=== PATIENT | male | born 1930 | race Caucasian/White ===

== ENCOUNTER 2018-07-18 17:49 | Inpatient (IN) | payer MEDICARE, OTHER ==
[~2018-07-18] VITALS: Ht 172.7 cm; Wt 84.5 kg
[~2018-07-18 17:49] MED LIST: CARV3.1289 PO; FURO-150 PO; GLIM4TAB79 PO; LEVO175T7 PO; LISI40TA4 PO; TERA2CAP4 PO
[2018-07-18 18:54] LABS: BASOPHILS % (AUTO) 0.4 % (0-1); EOSINOPHILS # (AUTO) 0.3 X10'3 (0-0.9); EOSINOPHILS % (AUTO) 3.5 % (0-6); HEMATOCRIT 30.6 % (42.0-52.0); HEMOGLOBIN 9.7 g/dl (14.0-17.9); LYMPHOCYTES # (AUTO) 0.4 X10'3 (1.1-4.8); LYMPHOCYTES % (AUTO) 5.7 % (21-51); MEAN CORPUSCULAR HEMOGLOBIN 28.2 PG (27.0-31.0); MEAN CORPUSCULAR HGB CONC 31.7 % (33.0-36.5); MEAN PLATELET VOLUME 7.3 FL (7.4-10.4); MONOCYTES # (AUTO) 0.7 X10'3 (0-0.9); MONOCYTES % (AUTO) 9.4 % (2-12); NEUTROPHILS # (AUTO) 6.1 X10'3 (1.8-7.7); PLATELET COUNT 214 X10'3 (140-440); RED BLOOD COUNT 3.44 X10'6 (4.70-6.10); RED CELL DISTRIBUTION WIDTH 19.6 % (11.5-14.5); WHITE BLOOD COUNT 7.5 X10'3 (4.5-11.0)
[2018-07-18 19:08] LABS: ALANINE AMINOTRANSFERASE 21 U/L (12-78); ALBUMIN 3.3 G/DL (3.4-5.0); ALBUMIN/GLOBULIN RATIO 0.9 (1.1-1.5); ALKALINE PHOSPHATASE 93 IU/L (46-116); ANION GAP 7 (8-16); ASPARTATE AMINO TRANSFERASE 19 U/L (10-37); BILIRUBIN,TOTAL 0.6 MG/DL (0.1-1.0); BLOOD UREA NITROGEN 27 MG/DL (7-18); CALCIUM 8.8 MG/DL (8.5-10.1); CHLORIDE 104 MMOL/L (99-107); CREATININE 1.04 MG/DL (0.60-1.10); GLUCOSE 129 MG/DL (70-104); POTASSIUM 4.7 MMOL/L (3.5-5.1); SODIUM 142 MMOL/L (135-145); TOTAL CARBON DIOXIDE 30.8 MMOL/L (24-32); TOTAL PROTEIN 6.8 G/DL (6.4-8.2); eGFR 68 ML/MIN
[2018-07-18 19:19] LABS: INR 1.3 INR; PARTIAL THROMBOPLASTIN TIME 31 SECONDS (22-32); PROTHROMBIN TIME 12.7 SECONDS (9.0-12.0)
[2018-07-18 21:14] LABS: COLOR,URINE BROWN (Yellow); GLUCOSE, URINE NEGATIVE (Neg); KETONES,URINE TRACE mg/dl (Neg); LEUKOCYTE ESTERASE ,URINE NEGATIVE (Neg); NITRITES, URINE NEGATIVE (Neg); OCCULT BLOOD,URINE LARGE (Neg); PROTEIN,URINE 100 mg/dl (Neg); UROBILINOGEN,URINE 0.2 E.U/dL (0.2-1.0)
[2018-07-18 21:30] LABS: CLARITY,URINE CLOUDY (Clear); UA COLLECTION TYPE CLN CATCH MIDSTREAM
[2018-07-18 21:36] LABS: BACTERIA,URINE NONE SEEN /HPF (Neg); RBC,URINE TNTC /HPF (0-2); SQUAMOUS EPITHELIAL CELL,UR NONE SEEN /LPF (FEW)
[2018-07-18] MEDS ORDERED: LEVO150T PO (23:35)
[2018-07-18] MEDS ORDERED: ASPI81TA52 PO (23:35)
[2018-07-18] MEDS ORDERED: LISI40TA4 PO (23:35)
[2018-07-18] MEDS ORDERED: APIX5TAB3 PO (23:35)
[2018-07-18] MEDS ORDERED: CEPH500C2 PO (23:35)
[2018-07-19] VITALS (8 sets, daily range): BP systolic 102–162; BP diastolic 66–81
[2018-07-19] MEDS ORDERED: acetaminophen 325mg tablet PO PRN (00:05)
[2018-07-19] MEDS ORDERED: magnesium hydroxide 30ml (MOM) UD suspension PO PRN (00:05)
[2018-07-19] MEDS ORDERED: morphine 4 MG/ML inj SYRINge IV PRN ×2 (00:05)
[2018-07-19] MEDS ORDERED: mag hydrox/Alum hydrox/simeth 30ml oral suspension PO PRN (00:05)
[2018-07-19] MEDS ORDERED: ondansetron/PF 4mg/2ml inj IV PRN (00:05)
[2018-07-19] MEDS ORDERED: MULT-1074 PO (00:07)
[2018-07-19] MEDS ORDERED: MUPI22OI30 TP (00:17)
[2018-07-19] MEDS ORDERED: MU V PO (00:17)
[2018-07-19] MEDS: cephalexin 500mg capsule PO SCH ×2 (07:22→21:12)
[2018-07-19] MEDS: levoTHYROXINE 75mcg tablet PO SCH (07:23)
[2018-07-19] MEDS: lisinopril 20mg tablet PO SCH (07:23)
[2018-07-19] MEDS ORDERED: furosemide 10 MG/1 ML 10ml inj IV SCH (08:00)
[2018-07-19] MEDS: Terazosin 1mg capsule PO SCH (21:12)
[2018-07-19] MEDS: lactobacillus rhamnosus 10,000 MMU CELLS/CAPSULE PO SCH (21:12)
[2018-07-19] MEDS: furosemide 20 MG/2 ML vial IV SCH (21:12)
[2018-07-20] VITALS (18 sets, daily range): BP systolic 101–140; BP diastolic 50–90
[2018-07-20 06:03] LABS: BASOPHILS % (AUTO) 0.3 % (0-1); EOSINOPHILS # (AUTO) 0.5 X10'3 (0-0.9); HEMOGLOBIN 10.3 g/dl (14.0-17.9); LYMPHOCYTES % (AUTO) 14.8 % (21-51); MEAN CORPUSCULAR HEMOGLOBIN 28.8 PG (27.0-31.0); MEAN CORPUSCULAR HGB CONC 32.3 % (33.0-36.5); MEAN CORPUSCULAR VOLUME 89.2 FL (78-98); MEAN PLATELET VOLUME 7.9 FL (7.4-10.4); MONOCYTES # (AUTO) 0.9 X10'3 (0-0.9); NEUTROPHILS # (AUTO) 4.2 X10'3 (1.8-7.7); NEUTROPHILS % (AUTO) 63.9 % (42-75); PLATELET COUNT 231 X10'3 (140-440); RED BLOOD COUNT 3.59 X10'6 (4.70-6.10); RED CELL DISTRIBUTION WIDTH 19.5 % (11.5-14.5); WHITE BLOOD COUNT 6.6 X10'3 (4.5-11.0)
[2018-07-20 06:59] LABS: ALANINE AMINOTRANSFERASE 19 U/L (12-78); ALBUMIN 3.2 G/DL (3.4-5.0); ALBUMIN/GLOBULIN RATIO 0.9 (1.1-1.5); ALKALINE PHOSPHATASE 82 IU/L (46-116); ANION GAP 4 (8-16); ASPARTATE AMINO TRANSFERASE 19 U/L (10-37); BILIRUBIN,TOTAL 0.7 MG/DL (0.1-1.0); BLOOD UREA NITROGEN 35 MG/DL (7-18); BUN/CREATININE RATIO 31.3 (5.4-32.0); CALCIUM 8.7 MG/DL (8.5-10.1); CHLORIDE 106 MMOL/L (99-107); CREATININE 1.12 MG/DL (0.60-1.10); GLUCOSE 104 MG/DL (70-104); SODIUM 145 MMOL/L (135-145); TOTAL CARBON DIOXIDE 34.7 MMOL/L (24-32); TOTAL PROTEIN 6.8 G/DL (6.4-8.2); eGFR 62 ML/MIN
[2018-07-20] MEDS: cephalexin 500mg capsule PO SCH ×2 (09:03→20:22)
[2018-07-20] MEDS: lisinopril 20mg tablet PO SCH (09:04)
[2018-07-20] MEDS: furosemide 20 MG/2 ML vial IV SCH ×2 (09:04→20:23)
[2018-07-20] MEDS: lactobacillus rhamnosus 10,000 MMU CELLS/CAPSULE PO SCH ×2 (09:04→20:22)
[2018-07-20] MEDS: levoTHYROXINE 75mcg tablet PO SCH (09:04)
[2018-07-20] MEDS ORDERED: iohexol 300 MG/1 ML 50ml polymer ONE (13:45)
[2018-07-20] MEDS ORDERED: famotidine/PF 10 mg/ml inj IV ONE (15:25)
[2018-07-20] MEDS ORDERED: ringers solution, lacted 1,000 ML IV SCH (16:58)
[2018-07-20] MEDS ORDERED: hydrALAZINE 20mg/ml inj. IV PRN (17:00)
[2018-07-20] MEDS ORDERED: morphine 4 MG/ML inj SYRINge IV PRN ×2 (17:00)
[2018-07-20] MEDS ORDERED: ondansetron/PF 4mg/2ml inj IV PRN (17:00)
[2018-07-20] MEDS ORDERED: fentaNYL/PF 50MCG/1 ML 2ML syringe IV PRN ×2 (17:00)
[2018-07-20] MEDS ORDERED: enalaprilat dihydrate 2.5mg/2ml vial IV PRN (17:00)
[2018-07-20] MEDS ORDERED: morphine 10mg/ml inj. ONE (17:08)
[2018-07-20] MEDS ORDERED: etomidate 2mg/ml inj. ONE (17:35)
[2018-07-20] MEDS: Terazosin 1mg capsule PO SCH (20:22)
[2018-07-21] VITALS (7 sets, daily range): BP systolic 105–116; BP diastolic 47–60
[2018-07-21] MEDS ORDERED: glucagon, human recombinant 1mg kit SUBCUT PRN (00:30)
[2018-07-21] MEDS ORDERED: dextrose ORAL solution 15 GM/59 ML bottle PO PRN ×2 (00:30)
[2018-07-21] MEDS ORDERED: dextrose 50%-water 50ml dispensing syringe IV PRN ×2 (00:30)
[2018-07-21] MEDS ORDERED: insulin Lispro (HumaLOG) vial - multi-dose SQ SCH (00:30)
[2018-07-21 06:35] LABS: BASOPHILS % (AUTO) 0.1 % (0-1); EOSINOPHILS # (AUTO) 0.2 X10'3 (0-0.9); EOSINOPHILS % (AUTO) 2.9 % (0-6); HEMATOCRIT 29.2 % (42.0-52.0); HEMOGLOBIN 9.3 g/dl (14.0-17.9); LYMPHOCYTES # (AUTO) 0.6 X10'3 (1.1-4.8); LYMPHOCYTES % (AUTO) 8.4 % (21-51); MEAN CORPUSCULAR HEMOGLOBIN 28.5 PG (27.0-31.0); MEAN CORPUSCULAR VOLUME 89.2 FL (78-98); MEAN PLATELET VOLUME 8.3 FL (7.4-10.4); MONOCYTES # (AUTO) 0.9 X10'3 (0-0.9); MONOCYTES % (AUTO) 12.7 % (2-12); NEUTROPHILS # (AUTO) 5.2 X10'3 (1.8-7.7); NEUTROPHILS % (AUTO) 75.9 % (42-75); PLATELET COUNT 201 X10'3 (140-440); RED BLOOD COUNT 3.28 X10'6 (4.70-6.10); WHITE BLOOD COUNT 6.8 X10'3 (4.5-11.0)
[2018-07-21 07:03] LABS: ALANINE AMINOTRANSFERASE 19 U/L (12-78); ALBUMIN 2.9 G/DL (3.4-5.0); ALBUMIN/GLOBULIN RATIO 0.9 (1.1-1.5); ALKALINE PHOSPHATASE 71 IU/L (46-116); ANION GAP 4 (8-16); ASPARTATE AMINO TRANSFERASE 21 U/L (10-37); BILIRUBIN,TOTAL 0.6 MG/DL (0.1-1.0); BLOOD UREA NITROGEN 36 MG/DL (7-18); CHLORIDE 101 MMOL/L (99-107); CREATININE 1.24 MG/DL (0.60-1.10); GLUCOSE 180 MG/DL (70-104); SODIUM 140 MMOL/L (135-145); TOTAL PROTEIN 6.3 G/DL (6.4-8.2); eGFR 55 ML/MIN
[2018-07-21] MEDS: lisinopril 20mg tablet PO SCH (07:25)
[2018-07-21] MEDS: levoTHYROXINE 75mcg tablet PO SCH (07:25)
[2018-07-21] MEDS: lactobacillus rhamnosus 10,000 MMU CELLS/CAPSULE PO SCH ×2 (07:26→21:39)
[2018-07-21] MEDS: furosemide 20 MG/2 ML vial IV SCH ×2 (07:26→21:40)
[2018-07-21] MEDS: cephalexin 500mg capsule PO SCH (07:26)
[2018-07-21] MEDS: apixaban 5mg tablet PO SCH ×2 (08:09→21:40)
[2018-07-21] MEDS ORDERED: levoFLOXACIN-Levaquin 750MG/D5 150 ML IV ONE (13:36)
[2018-07-21] MEDS: Terazosin 1mg capsule PO SCH (21:40)
[2018-07-22 02:00] VITALS: BP 112/58
[2018-07-22 06:30] VITALS: BP 108/58
[2018-07-22 06:45] LABS: BASOPHILS % (AUTO) 0.4 % (0-1); EOSINOPHILS # (AUTO) 0.4 X10'3 (0-0.9); EOSINOPHILS % (AUTO) 5.5 % (0-6); HEMATOCRIT 30.3 % (42.0-52.0); HEMOGLOBIN 9.7 g/dl (14.0-17.9); LYMPHOCYTES # (AUTO) 0.9 X10'3 (1.1-4.8); LYMPHOCYTES % (AUTO) 12.5 % (21-51); MEAN CORPUSCULAR HEMOGLOBIN 28.5 PG (27.0-31.0); MEAN CORPUSCULAR HGB CONC 32.1 % (33.0-36.5); MEAN CORPUSCULAR VOLUME 88.7 FL (78-98); MEAN PLATELET VOLUME 8.1 FL (7.4-10.4); MONOCYTES # (AUTO) 0.8 X10'3 (0-0.9); MONOCYTES % (AUTO) 11.4 % (2-12); NEUTROPHILS % (AUTO) 70.2 % (42-75); PLATELET COUNT 199 X10'3 (140-440); RED BLOOD COUNT 3.42 X10'6 (4.70-6.10); RED CELL DISTRIBUTION WIDTH 19.1 % (11.5-14.5); WHITE BLOOD COUNT 7.1 X10'3 (4.5-11.0)
[2018-07-22 07:06] LABS: ALANINE AMINOTRANSFERASE 28 U/L (12-78); ALBUMIN 2.8 G/DL (3.4-5.0); ALBUMIN/GLOBULIN RATIO 0.8 (1.1-1.5); ALKALINE PHOSPHATASE 69 IU/L (46-116); ANION GAP 3 (8-16); ASPARTATE AMINO TRANSFERASE 43 U/L (10-37); BILIRUBIN,TOTAL 0.7 MG/DL (0.1-1.0); BLOOD UREA NITROGEN 36 MG/DL (7-18); BUN/CREATININE RATIO 30.8 (5.4-32.0); CHLORIDE 100 MMOL/L (99-107); CREATININE 1.17 MG/DL (0.60-1.10); GLUCOSE 138 MG/DL (70-104); POTASSIUM 4.1 MMOL/L (3.5-5.1); SODIUM 140 MMOL/L (135-145); TOTAL CARBON DIOXIDE 36.7 MMOL/L (24-32); TOTAL PROTEIN 6.3 G/DL (6.4-8.2); eGFR 59 ML/MIN
[2018-07-22] MEDS ORDERED: levoFLOXACIN-Levaquin 750MG/D5 150 ML IV ONE (08:00)
[2018-07-22] MEDS: furosemide 20 MG/2 ML vial IV SCH ×2 (09:34→20:37)
[2018-07-22] MEDS: lactobacillus rhamnosus 10,000 MMU CELLS/CAPSULE PO SCH ×2 (09:34→20:37)
[2018-07-22] MEDS: levoTHYROXINE 75mcg tablet PO SCH (09:34)
[2018-07-22] MEDS: lisinopril 20mg tablet PO SCH (09:35)
[2018-07-22] MEDS: apixaban 5mg tablet PO SCH ×2 (10:07→20:38)
[2018-07-22] MEDS ORDERED: furosemide 20MG tablet PO ONE (10:45)
[2018-07-22 11:30] VITALS: BP 116/56
[2018-07-22 15:30] VITALS: BP 108/66
[2018-07-22 18:00] VITALS: BP 137/53
[2018-07-22] MEDS: Terazosin 1mg capsule PO SCH (20:38)
[2018-07-22 22:00] VITALS: BP 112/54
[2018-07-23 02:00] VITALS: BP 99/64
[2018-07-23 05:23] LABS: BASOPHILS % (AUTO) 0.3 % (0-1); EOSINOPHILS # (AUTO) 0.5 X10'3 (0-0.9); EOSINOPHILS % (AUTO) 7.8 % (0-6); HEMATOCRIT 28.7 % (42.0-52.0); HEMOGLOBIN 9.2 g/dl (14.0-17.9); LYMPHOCYTES # (AUTO) 0.9 X10'3 (1.1-4.8); LYMPHOCYTES % (AUTO) 12.5 % (21-51); MEAN CORPUSCULAR HEMOGLOBIN 28.2 PG (27.0-31.0); MEAN CORPUSCULAR HGB CONC 32.1 % (33.0-36.5); MEAN PLATELET VOLUME 8.1 FL (7.4-10.4); MONOCYTES # (AUTO) 0.8 X10'3 (0-0.9); MONOCYTES % (AUTO) 11.5 % (2-12); NEUTROPHILS # (AUTO) 4.7 X10'3 (1.8-7.7); NEUTROPHILS % (AUTO) 67.9 % (42-75); PLATELET COUNT 201 X10'3 (140-440); RED BLOOD COUNT 3.27 X10'6 (4.70-6.10); RED CELL DISTRIBUTION WIDTH 18.8 % (11.5-14.5); WHITE BLOOD COUNT 6.9 X10'3 (4.5-11.0)
[2018-07-23 05:40] LABS: ALANINE AMINOTRANSFERASE 23 U/L (12-78); ALBUMIN 2.6 G/DL (3.4-5.0); ALBUMIN/GLOBULIN RATIO 0.8 (1.1-1.5); ALKALINE PHOSPHATASE 63 IU/L (46-116); ANION GAP 3 (8-16); ASPARTATE AMINO TRANSFERASE 40 U/L (10-37); BILIRUBIN,TOTAL 0.6 MG/DL (0.1-1.0); BLOOD UREA NITROGEN 32 MG/DL (7-18); BUN/CREATININE RATIO 30.8 (5.4-32.0); CALCIUM 7.9 MG/DL (8.5-10.1); CHLORIDE 100 MMOL/L (99-107); CREATININE 1.04 MG/DL (0.60-1.10); GLUCOSE 135 MG/DL (70-104); POTASSIUM 3.7 MMOL/L (3.5-5.1); SODIUM 138 MMOL/L (135-145); TOTAL CARBON DIOXIDE 35.2 MMOL/L (24-32); TOTAL PROTEIN 5.9 G/DL (6.4-8.2); eGFR 68 ML/MIN
[2018-07-23 06:00] VITALS: BP 104/40
[2018-07-23] MEDS ORDERED: levoFLOXACIN 750MG TABLET PO SCH (08:00)
[2018-07-23] MEDS: levoTHYROXINE 75mcg tablet PO SCH (08:07)
[2018-07-23] MEDS: furosemide 20 MG/2 ML vial IV SCH (08:07)
[2018-07-23] MEDS: lactobacillus rhamnosus 10,000 MMU CELLS/CAPSULE PO SCH ×2 (08:07→20:34)
[2018-07-23] MEDS: apixaban 5mg tablet PO SCH ×2 (08:07→20:34)
[2018-07-23] MEDS: lisinopril 20mg tablet PO SCH (08:07)
[2018-07-23] MEDS ORDERED: furosemide 20 MG/2 ML vial IV ONE (08:45)
[2018-07-23 11:00] VITALS: BP 127/63
[2018-07-23 15:00] VITALS: BP 104/61
[2018-07-23 18:00] VITALS: BP 131/51
[2018-07-23] MEDS ORDERED: furosemide 40mg/4ml inj IV SCH (20:00)
[2018-07-23] MEDS: furosemide 40mg tablet PO SCH (20:34)
[2018-07-23] MEDS: Terazosin 1mg capsule PO SCH (20:34)
[2018-07-23 22:00] VITALS: BP 118/49
[2018-07-24 02:00] VITALS: BP 120/52
[2018-07-24 05:45] LABS: BASOPHILS % (AUTO) 0.5 % (0-1); EOSINOPHILS # (AUTO) 0.5 X10'3 (0-0.9); EOSINOPHILS % (AUTO) 7.1 % (0-6); HEMATOCRIT 29.4 % (42.0-52.0); HEMOGLOBIN 9.4 g/dl (14.0-17.9); LYMPHOCYTES # (AUTO) 0.8 X10'3 (1.1-4.8); MEAN CORPUSCULAR HEMOGLOBIN 28.2 PG (27.0-31.0); MEAN CORPUSCULAR HGB CONC 31.9 % (33.0-36.5); MEAN CORPUSCULAR VOLUME 88.4 FL (78-98); MEAN PLATELET VOLUME 7.8 FL (7.4-10.4); MONOCYTES # (AUTO) 0.8 X10'3 (0-0.9); NEUTROPHILS # (AUTO) 4.5 X10'3 (1.8-7.7); NEUTROPHILS % (AUTO) 68.4 % (42-75); PLATELET COUNT 218 X10'3 (140-440); RED BLOOD COUNT 3.33 X10'6 (4.70-6.10); RED CELL DISTRIBUTION WIDTH 19.1 % (11.5-14.5); WHITE BLOOD COUNT 6.6 X10'3 (4.5-11.0)
[2018-07-24 05:57] LABS: ALANINE AMINOTRANSFERASE 28 U/L (12-78); ALBUMIN 2.7 G/DL (3.4-5.0); ALBUMIN/GLOBULIN RATIO 0.8 (1.1-1.5); ALKALINE PHOSPHATASE 74 IU/L (46-116); ANION GAP 3 (8-16); ASPARTATE AMINO TRANSFERASE 37 U/L (10-37); BILIRUBIN,TOTAL 0.6 MG/DL (0.1-1.0); BLOOD UREA NITROGEN 30 MG/DL (7-18); BUN/CREATININE RATIO 26.1 (5.4-32.0); CALCIUM 8.2 MG/DL (8.5-10.1); CHLORIDE 100 MMOL/L (99-107); CREATININE 1.15 MG/DL (0.60-1.10); GLUCOSE 137 MG/DL (70-104); SODIUM 140 MMOL/L (135-145); TOTAL CARBON DIOXIDE 37.5 MMOL/L (24-32); TOTAL PROTEIN 6.2 G/DL (6.4-8.2); eGFR 60 ML/MIN
[2018-07-24 08:00] VITALS: BP 130/51
[2018-07-24] MEDS: furosemide 40mg tablet PO SCH (08:26)
[2018-07-24] MEDS: levoTHYROXINE 75mcg tablet PO SCH (08:26)
[2018-07-24] MEDS: apixaban 5mg tablet PO SCH (08:26)
[2018-07-24] MEDS: lactobacillus rhamnosus 10,000 MMU CELLS/CAPSULE PO SCH (08:26)
[2018-07-24] MEDS: lisinopril 20mg tablet PO SCH (08:26)
[2018-07-24 12:00] VITALS: BP 118/49
[2018-07-24] MEDS ORDERED: FURO40TA4 PO (14:09)
[2018-07-24] MEDS ORDERED: LEVO750T46 PO (14:09)
== END 2018-07-24 15:35 | disposition home health service (06) | DRG 659 ==
LOC: ER 17:49 → PCU 3S 07-19 00:04 → CMPBEDREQ 07-19 03:55
PROVIDERS: ADMIT Internal Medicine; ATTEND Family Medicine
PROC: 0TCB8ZZ Extirpation of Matter from Bladder, Via Natural or Artificial Opening Endoscopic (ICD-10-PCS; 2018-07-20)
PROC: 0T778DZ Dilation of Left Ureter with Intraluminal Device, Via Natural or Artificial Opening Endoscopic (ICD-10-PCS; principal; 2018-07-20 17:07)
DX: N13.6 Pyonephrosis (principal); I50.23 Acute on chronic systolic (congestive) heart failure; I13.0 Hypertensive heart and chronic kidney disease with heart failure and stage 1 through stage 4 chronic kidney disease, or unspecified chronic kidney disease; N20.2 Calculus of kidney with calculus of ureter; D64.9 Anemia, unspecified; I48.2 Chronic atrial fibrillation; I25.10 Atherosclerotic heart disease of native coronary artery without angina pectoris; E03.9 Hypothyroidism, unspecified; B96.4 Proteus (mirabilis) (morganii) as the cause of diseases classified elsewhere; R33.9 Retention of urine, unspecified; E11.22 Type 2 diabetes mellitus with diabetic chronic kidney disease; N18.2 Chronic kidney disease, stage 2 (mild); N32.0 Bladder-neck obstruction; R09.02 Hypoxemia; I25.2 Old myocardial infarction; Z99.81 Dependence on supplemental oxygen; Z79.899 Other long term (current) drug therapy; Z79.01 Long term (current) use of anticoagulants; Z85.820 Personal history of malignant melanoma of skin; Z87.891 Personal history of nicotine dependence
CPT/HCPCS: 36415; 71045; 74018; 74176; 76000; 80053; 81001; 82948; 83036; 83880; 84484; 85025; 85610; 85730; 87070; 87077; 87088; 87186; 88300; 93005; 93306; 99285; A4402; C1769; C2625; G0378; J0690; J1940; J1956; J2270; J3010; J3490; J7030; J7120; Q9967

== ENCOUNTER 2018-07-27 17:00 | Emergency (ER) | payer MEDICARE, OTHER ==
[~2018-07-27] VITALS: Ht 170.2 cm; Wt 78.6 kg
[~2018-07-27 17:00] MED LIST changes: +APIX5TAB3 PO; +ASPI81TA52 PO; -CARV3.1289 PO; -FURO-150 PO; +FURO40TA4 PO; -GLIM4TAB79 PO; +LEVO150T PO; -LEVO175T7 PO; +LEVO750T46 PO; +MU V PO; +MUPI22OI30 TP
[2018-07-27] MEDS ORDERED: normal saline 1000ML IV soln IVB ONE (17:55)
[2018-07-27 18:35] LABS: ALANINE AMINOTRANSFERASE 29 U/L (12-78); ALBUMIN/GLOBULIN RATIO 0.9 (1.1-1.5); ALKALINE PHOSPHATASE 87 IU/L (46-116); ANION GAP 7 (8-16); ASPARTATE AMINO TRANSFERASE 27 U/L (10-37); BILIRUBIN,TOTAL 0.5 MG/DL (0.1-1.0); BLOOD UREA NITROGEN 40 MG/DL (7-18); BUN/CREATININE RATIO 22.6 (5.4-32.0); CALCIUM 8.3 MG/DL (8.5-10.1); CHLORIDE 95 MMOL/L (99-107); CREATININE 1.77 MG/DL (0.60-1.10); GLUCOSE 152 MG/DL (70-104); POTASSIUM 4.1 MMOL/L (3.5-5.1); SODIUM 137 MMOL/L (135-145); TOTAL CARBON DIOXIDE 35.1 MMOL/L (24-32); TOTAL PROTEIN 6.5 G/DL (6.4-8.2); eGFR 37 ML/MIN
[2018-07-27 18:36] LABS: BASOPHILS % (AUTO) 0.5 % (0-1); EOSINOPHILS # (AUTO) 0.4 X10'3 (0-0.9); EOSINOPHILS % (AUTO) 4.6 % (0-6); HEMATOCRIT 27.8 % (42.0-52.0); LYMPHOCYTES # (AUTO) 0.9 X10'3 (1.1-4.8); LYMPHOCYTES % (AUTO) 10.5 % (21-51); MEAN CORPUSCULAR HEMOGLOBIN 28.7 PG (27.0-31.0); MEAN CORPUSCULAR HGB CONC 32.3 % (33.0-36.5); MEAN CORPUSCULAR VOLUME 88.9 FL (78-98); MEAN PLATELET VOLUME 8.3 FL (7.4-10.4); MONOCYTES # (AUTO) 0.9 X10'3 (0-0.9); MONOCYTES % (AUTO) 10.1 % (2-12); NEUTROPHILS # (AUTO) 6.2 X10'3 (1.8-7.7); NEUTROPHILS % (AUTO) 74.3 % (42-75); PLATELET COUNT 257 X10'3 (140-440); RED BLOOD COUNT 3.12 X10'6 (4.70-6.10); RED CELL DISTRIBUTION WIDTH 17.5 % (11.5-14.5); WHITE BLOOD COUNT 8.4 X10'3 (4.5-11.0)
[2018-07-27 18:52] LABS: UA COLLECTION TYPE CLN CATCH MIDSTREAM
[2018-07-27 18:53] LABS: CLARITY,URINE CLOUDY (Clear); COLOR,URINE YELLOW (Yellow); GLUCOSE, URINE NEGATIVE (Neg); KETONES,URINE TRACE mg/dl (Neg); LEUKOCYTE ESTERASE ,URINE SMALL (Neg); NITRITES, URINE NEGATIVE (Neg); OCCULT BLOOD,URINE LARGE (Neg); PROTEIN,URINE 30 mg/dl (Neg); UROBILINOGEN,URINE 0.2 E.U/dL (0.2-1.0)
[2018-07-27 18:54] LABS: BACTERIA,URINE FEW /HPF (Neg); RBC,URINE 50-100 /HPF (0-2); SQUAMOUS EPITHELIAL CELL,UR FEW /LPF (FEW)
[2018-07-27 18:55] LABS: AMORPHOUS URATES 1+
[2018-07-27 19:50] VITALS: BP 124/56
== END 2018-07-27 19:54 | disposition home or self-care (01) ==
LOC: ER 17:00
DX: N28.9 Disorder of kidney and ureter, unspecified (principal); E86.0 Dehydration; I48.91 Unspecified atrial fibrillation; I11.0 Hypertensive heart disease with heart failure; I50.9 Heart failure, unspecified; I25.2 Old myocardial infarction; E11.9 Type 2 diabetes mellitus without complications; E03.9 Hypothyroidism, unspecified; Z79.01 Long term (current) use of anticoagulants; Z79.2 Long term (current) use of antibiotics; Z79.899 Other long term (current) drug therapy
CPT/HCPCS: 36415; 71045; 80053; 81001; 85025; 87088; 99284; J7030

== ENCOUNTER 2018-08-06 16:57 | Inpatient (IN) | payer MEDICARE, OTHER ==
[2018-08-06] VITALS (10 sets, daily range): BP systolic 96–147; BP diastolic 42–66
[~2018-08-06] VITALS: Ht 172.7 cm; Wt 75.5 kg
[2018-08-06] MEDS ORDERED: ondansetron/PF 4mg/2ml inj IV ONE (17:10)
[2018-08-06] MEDS ORDERED: normal saline 1000ML IV soln IV ONE (17:10)
[2018-08-06 17:31] LABS: BASOPHILS % (AUTO) 0.4 % (0-1); EOSINOPHILS # (AUTO) 0.3 X10'3 (0-0.9); EOSINOPHILS % (AUTO) 3.7 % (0-6); LYMPHOCYTES # (AUTO) 0.7 X10'3 (1.1-4.8); LYMPHOCYTES % (AUTO) 9.5 % (21-51); MEAN CORPUSCULAR HEMOGLOBIN 28.6 PG (27.0-31.0); MEAN CORPUSCULAR HGB CONC 31.8 % (33.0-36.5); MEAN CORPUSCULAR VOLUME 89.9 FL (78-98); MEAN PLATELET VOLUME 7.1 FL (7.4-10.4); MONOCYTES # (AUTO) 0.6 X10'3 (0-0.9); MONOCYTES % (AUTO) 8.2 % (2-12); NEUTROPHILS # (AUTO) 5.9 X10'3 (1.8-7.7); NEUTROPHILS % (AUTO) 78.2 % (42-75); PLATELET COUNT 445 X10'3 (140-440); RED BLOOD COUNT 2.45 X10'6 (4.70-6.10); RED CELL DISTRIBUTION WIDTH 21.9 % (11.5-14.5); WHITE BLOOD COUNT 7.6 X10'3 (4.5-11.0)
--- NOTE | 2018-08-06 17:39 | NUR ---
MAYNOR SOTO DAUGHTER HUSBANDS CELL: ARCHANA; [phone]
--- NOTE | 2018-08-06 17:39 | NUR ---
TO CT SCAN OF ABDOMEN
[2018-08-06 17:49] LABS: ALANINE AMINOTRANSFERASE 24 U/L (12-78); ALBUMIN 3.3 G/DL (3.4-5.0); ALBUMIN/GLOBULIN RATIO 0.9 (1.1-1.5); ALKALINE PHOSPHATASE 73 IU/L (46-116); ANION GAP 6 (8-16); ASPARTATE AMINO TRANSFERASE 24 U/L (10-37); BILIRUBIN,TOTAL 0.8 MG/DL (0.1-1.0); BLOOD UREA NITROGEN 48 MG/DL (7-18); BUN/CREATININE RATIO 29.4 (5.4-32.0); CALCIUM 8.6 MG/DL (8.5-10.1); CHLORIDE 96 MMOL/L (99-107); CREATININE 1.63 MG/DL (0.60-1.10); GLUCOSE 167 MG/DL (70-104); POTASSIUM 5.5 MMOL/L (3.5-5.1); SODIUM 134 MMOL/L (135-145); TOTAL CARBON DIOXIDE 31.9 MMOL/L (24-32); TOTAL PROTEIN 6.9 G/DL (6.4-8.2); eGFR 40 ML/MIN
[2018-08-06 17:52] LABS: INR 1.2 INR; PROTHROMBIN TIME 12.5 SECONDS (9.0-12.0)
--- NOTE | 2018-08-06 18:00 | NUR ---
mann lopez would like ua from existing jc catheter
[2018-08-06 18:13] LABS: CLARITY,URINE SLIGHTLY CLOUDY (Clear); COLOR,URINE STRAW (Yellow); GLUCOSE, URINE NEGATIVE (Neg); KETONES,URINE NEGATIVE (Neg); LEUKOCYTE ESTERASE ,URINE MODERATE (Neg); NITRITES, URINE NEGATIVE (Neg); OCCULT BLOOD,URINE LARGE (Neg); PROTEIN,URINE NEGATIVE (Neg); UROBILINOGEN,URINE 0.2 E.U/dL (0.2-1.0)
[2018-08-06 18:19] LABS: UA COLLECTION TYPE FOLEY CATH
[2018-08-06 18:21] LABS: MUCUS STRANDS MODERATE /LPF (Neg); SQUAMOUS EPITHELIAL CELL,UR FEW /LPF (FEW)
[2018-08-06 18:23] LABS: BACTERIA,URINE NONE SEEN /HPF (Neg); RBC,URINE 50-100 /HPF (0-2)
--- NOTE | 2018-08-06 18:54 | NUR ---
HX OF CHF. DIAGNOSED 2 YEARS AGO. FAMILY STATES IS ON LASIX.
--- NOTE | 2018-08-06 20:21 | NUR ---
Hospitalist in the room.
[2018-08-06] MEDS ORDERED: ondansetron/PF 4mg/2ml inj IV PRN (20:50)
[2018-08-06] MEDS ORDERED: mag hydrox/Alum hydrox/simeth 30ml oral suspension PO PRN (20:50)
[2018-08-06] MEDS ORDERED: acetaminophen 325mg tablet PO PRN (20:50)
[2018-08-06] MEDS ORDERED: magnesium hydroxide 30ml (MOM) UD suspension PO PRN (20:50)
[2018-08-06] MEDS ORDERED: furosemide 10 MG/1 ML 10ml inj IV ONE (21:05)
[2018-08-06] MEDS: Terazosin 1mg capsule PO SCH (21:36)
--- NOTE | 2018-08-06 23:08 | NUR ---
Received report from Devorah RYAN from ER, Questions asked and answered, will be transferring to 3Surg shortly. Report given to Diego RYAN who will be caring for patient.
--- NOTE | 2018-08-06 23:25 | NUR ---
PATIENT ADMITTED TO ROOM 354C FROM ER FOR LEFT PSOAS HEMATOMA AND SYMPTOMATIC ANEMIA. PLACED COMFORTABLE IN BED. VITAL SIGNS TAKEN AND RECORDED.
[2018-08-07] MEDS: normal saline 1000ml 1,000 ML IV SCH (00:45)
[2018-08-07 06:17] LABS: BASOPHILS # (AUTO) 0.1 X10'3 (0-0.2); BASOPHILS % (AUTO) 0.9 % (0-1); EOSINOPHILS # (AUTO) 0.6 X10'3 (0-0.9); EOSINOPHILS % (AUTO) 8.8 % (0-6); HEMATOCRIT 26.2 % (42.0-52.0); HEMOGLOBIN 8.5 g/dl (14.0-17.9); LYMPHOCYTES # (AUTO) 1.1 X10'3 (1.1-4.8); MEAN CORPUSCULAR HEMOGLOBIN 29.1 PG (27.0-31.0); MEAN CORPUSCULAR HGB CONC 32.5 % (33.0-36.5); MEAN CORPUSCULAR VOLUME 89.6 FL (78-98); MEAN PLATELET VOLUME 7.4 FL (7.4-10.4); MONOCYTES # (AUTO) 0.6 X10'3 (0-0.9); MONOCYTES % (AUTO) 9.8 % (2-12); NEUTROPHILS # (AUTO) 3.9 X10'3 (1.8-7.7); NEUTROPHILS % (AUTO) 62.5 % (42-75); PLATELET COUNT 344 X10'3 (140-440); RED BLOOD COUNT 2.92 X10'6 (4.70-6.10); RED CELL DISTRIBUTION WIDTH 19.3 % (11.5-14.5); WHITE BLOOD COUNT 6.3 X10'3 (4.5-11.0)
--- NOTE | 2018-08-07 06:30 | NUR ---
Problems reprioritized. Patient report given, questions answered & plan of care reviewed with SANTIAGO RYAN.
[2018-08-07 06:38] LABS: ALANINE AMINOTRANSFERASE 21 U/L (12-78); ALBUMIN 2.9 G/DL (3.4-5.0); ALBUMIN/GLOBULIN RATIO 0.9 (1.1-1.5); ALKALINE PHOSPHATASE 64 IU/L (46-116); ANION GAP 3 (8-16); ASPARTATE AMINO TRANSFERASE 21 U/L (10-37); BILIRUBIN,TOTAL 1.6 MG/DL (0.1-1.0); BLOOD UREA NITROGEN 44 MG/DL (7-18); BUN/CREATININE RATIO 29.3 (5.4-32.0); CALCIUM 8.2 MG/DL (8.5-10.1); CHLORIDE 100 MMOL/L (99-107); GLUCOSE 106 MG/DL (70-104); POTASSIUM 4.9 MMOL/L (3.5-5.1); SODIUM 139 MMOL/L (135-145); TOTAL CARBON DIOXIDE 35.6 MMOL/L (24-32); TOTAL PROTEIN 6.1 G/DL (6.4-8.2); eGFR 44 ML/MIN
[2018-08-07 07:36] VITALS: BP 113/48
[2018-08-07 07:40] LABS: ANISOCYTOSIS 2+; ELLIPTOCYTES 1+; PLATELET ESTIMATE NORMAL
[2018-08-07] MEDS: levoTHYROXINE 75mcg tablet PO SCH (07:53)
[2018-08-07] MEDS ORDERED: lisinopril 20mg tablet PO SCH (08:00)
[2018-08-07] MEDS ORDERED: furosemide 40mg tablet PO SCH (08:00)
--- NOTE | 2018-08-07 11:04 | NUR ---
Spoke with MD at bedside. MD ordered BNP, BMP, and hemogram. Oked PT. All ordered put in.
[2018-08-07 11:20] VITALS: BP 107/45
[2018-08-07] MEDS ORDERED: dextrose ORAL solution 15 GM/59 ML bottle PO PRN ×2 (12:25)
[2018-08-07] MEDS ORDERED: MESSAGE TO PHARMACY PO ONE (12:25)
[2018-08-07] MEDS ORDERED: dextrose 50%-water 50ml dispensing syringe IV PRN ×2 (12:25)
[2018-08-07] MEDS ORDERED: insulin Lispro (HumaLOG) vial - multi-dose SQ SCH (12:25)
[2018-08-07] MEDS ORDERED: glucagon, human recombinant 1mg kit SUBCUT PRN (12:25)
[2018-08-07 13:29] LABS: ALBUMIN 3.1 G/DL (3.4-5.0); ANION GAP 4 (8-16); BLOOD UREA NITROGEN 41 MG/DL (7-18); BUN/CREATININE RATIO 28.1 (5.4-32.0); CALCIUM 8.2 MG/DL (8.5-10.1); CHLORIDE 97 MMOL/L (99-107); CREATININE 1.46 MG/DL (0.60-1.10); GLUCOSE 121 MG/DL (70-104); POTASSIUM 5.1 MMOL/L (3.5-5.1); SODIUM 136 MMOL/L (135-145); TOTAL CARBON DIOXIDE 35.5 MMOL/L (24-32); eGFR 46 ML/MIN
[2018-08-07 14:08] LABS: HEMOGLOBIN A1C 6.4 % (4.5-6.2)
[2018-08-07 14:50] LABS: HEMATOCRIT 29.1 % (42.0-52.0); HEMOGLOBIN 9.3 g/dl (14.0-17.9); MEAN CORPUSCULAR HEMOGLOBIN 28.8 PG (27.0-31.0); MEAN CORPUSCULAR VOLUME 89.9 FL (78-98); MEAN PLATELET VOLUME 7.6 FL (7.4-10.4); PLATELET COUNT 373 X10'3 (140-440); RED BLOOD COUNT 3.24 X10'6 (4.70-6.10); RED CELL DISTRIBUTION WIDTH 18.5 % (11.5-14.5)
--- NOTE | 2018-08-07 14:58 | NUR ---
PT STATES HE USES 02 AT HOME ON 4LPM. DESATURATES ON ROOM AIR. MADE AWARE.
--- NOTE | 2018-08-07 15:02 | NUR ---
Juju RYAN AM assessment reviewed, changes made as needed. I agree with assessment.
[2018-08-07] MEDS ORDERED: hyDRALAzine 10mg tablet PO PRN (17:30)
--- NOTE | 2018-08-07 18:40 | NUR ---
Problems reprioritized. Patient report given, questions answered & plan of care reviewed with
[2018-08-07 20:00] VITALS: BP 115/42
[2018-08-07] MEDS: Terazosin 1mg capsule PO SCH (20:16)
[2018-08-07] MEDS: lactobacillus rhamnosus 10,000 MMU CELLS/CAPSULE PO SCH (20:16)
[2018-08-07] MEDS ORDERED: insulin glargine (Lantus) pen - multi-dose SQ SCH (21:00)
[2018-08-08] VITALS: BP 103/50
[2018-08-08] MEDS: normal saline 1000ml 1,000 ML IV SCH (05:20)
[2018-08-08 05:37] LABS: BASOPHILS % (AUTO) 0.7 % (0-1); EOSINOPHILS # (AUTO) 0.6 X10'3 (0-0.9); HEMOGLOBIN 8.7 g/dl (14.0-17.9); LYMPHOCYTES # (AUTO) 1.1 X10'3 (1.1-4.8); LYMPHOCYTES % (AUTO) 15.6 % (21-51); MEAN CORPUSCULAR HEMOGLOBIN 29.3 PG (27.0-31.0); MEAN CORPUSCULAR VOLUME 91.5 FL (78-98); MEAN PLATELET VOLUME 7.5 FL (7.4-10.4); MONOCYTES # (AUTO) 0.8 X10'3 (0-0.9); MONOCYTES % (AUTO) 11.1 % (2-12); NEUTROPHILS # (AUTO) 4.6 X10'3 (1.8-7.7); NEUTROPHILS % (AUTO) 63.6 % (42-75); PLATELET COUNT 340 X10'3 (140-440); RED BLOOD COUNT 2.96 X10'6 (4.70-6.10); WHITE BLOOD COUNT 7.1 X10'3 (4.5-11.0)
[2018-08-08 05:58] LABS: ALBUMIN 2.7 G/DL (3.4-5.0); ANION GAP 3 (8-16); BLOOD UREA NITROGEN 36 MG/DL (7-18); BUN/CREATININE RATIO 25.7 (5.4-32.0); CALCIUM 7.9 MG/DL (8.5-10.1); CHLORIDE 101 MMOL/L (99-107); GLUCOSE 116 MG/DL (70-104); POTASSIUM 4.9 MMOL/L (3.5-5.1); SODIUM 137 MMOL/L (135-145); TOTAL CARBON DIOXIDE 32.9 MMOL/L (24-32); eGFR 48 ML/MIN
--- NOTE | 2018-08-08 06:42 | NUR ---
Problems reprioritized. Patient report given, questions answered & plan of care reviewed with SHELBY Macias.
--- NOTE | 2018-08-08 06:44 | NUR ---
Patient in room [facility] 354. I have received report from Britt RYAN and had the opportunity to ask questions and assume patient care.
[2018-08-08 08:00] VITALS: BP 100/58
[2018-08-08] MEDS ORDERED: levoFLOXACIN 750MG TABLET PO SCH (08:00)
[2018-08-08] MEDS: lactobacillus rhamnosus 10,000 MMU CELLS/CAPSULE PO SCH (08:24)
[2018-08-08] MEDS: levoTHYROXINE 75mcg tablet PO SCH (08:24)
--- NOTE | 2018-08-08 13:56 | NUR ---
all d/c instruction reviewed with pt. IV d/c'd cannula intact. left with all belongings in w/c with family at side.
== END 2018-08-08 13:48 | disposition home or self-care (01) | DRG 683 ==
LOC: ER 16:57 → ED HOLD 20:46 → SUR 3N 23:20
PROVIDERS: ADMIT Internal Medicine; ATTEND Internal Medicine
PROC: 30233N1 Transfusion of Nonautologous Red Blood Cells into Peripheral Vein, Percutaneous Approach (ICD-10-PCS; principal; 2018-08-06)
DX: N17.9 Acute kidney failure, unspecified (principal); D62 Acute posthemorrhagic anemia; I13.0 Hypertensive heart and chronic kidney disease with heart failure and stage 1 through stage 4 chronic kidney disease, or unspecified chronic kidney disease; I50.42 Chronic combined systolic (congestive) and diastolic (congestive) heart failure; E03.9 Hypothyroidism, unspecified; E11.22 Type 2 diabetes mellitus with diabetic chronic kidney disease; R55 Syncope and collapse; I48.0 Paroxysmal atrial fibrillation; N20.0 Calculus of kidney; M79.81 Nontraumatic hematoma of soft tissue; N18.9 Chronic kidney disease, unspecified; T45.515A Adverse effect of anticoagulants, initial encounter; I25.2 Old myocardial infarction; Z79.82 Long term (current) use of aspirin; Z79.899 Other long term (current) drug therapy; Z79.01 Long term (current) use of anticoagulants; Z85.72 Personal history of non-Hodgkin lymphomas; Z85.820 Personal history of malignant melanoma of skin; Y92.89 Other specified places as the place of occurrence of the external cause
CPT/HCPCS: 96361; 96374; 99291; P9612; 36415; 71045; 74176; 80048; 80053; 81001; 82948; 83036; 83880; 85025; 85027; 85610; 86885; 86900; 86901; 86920; 87070; 87088; 93005; G0378; J1815; J1940; J2405; J7030; P9016

== ENCOUNTER 2018-11-16 18:55 | Emergency (ER) | payer MEDICARE, OTHER ==
[~2018-11-16] VITALS: Ht 165.1 cm; Wt 81.8 kg
[~2018-11-16 18:55] MED LIST changes: -APIX5TAB3 PO; -LEVO750T46 PO
[2018-11-16 19:01] VITALS: BP 120/55
[2018-11-16 19:33] LABS: BASOPHILS % (AUTO) 0.8 % (0-1); EOSINOPHILS # (AUTO) 0.3 X10'3 (0-0.9); EOSINOPHILS % (AUTO) 5.2 % (0-6); HEMATOCRIT 33.8 % (42.0-52.0); HEMOGLOBIN 10.6 g/dl (14.0-17.9); LYMPHOCYTES # (AUTO) 1.1 X10'3 (1.1-4.8); LYMPHOCYTES % (AUTO) 18.8 % (21-51); MEAN CORPUSCULAR HEMOGLOBIN 26.3 PG (27.0-31.0); MEAN CORPUSCULAR HGB CONC 31.4 g/dL (33.0-36.5); MEAN CORPUSCULAR VOLUME 83.7 FL (78-98); MEAN PLATELET VOLUME 8.3 FL (7.4-10.4); MONOCYTES # (AUTO) 0.8 X10'3 (0-0.9); MONOCYTES % (AUTO) 13.4 % (2-12); NEUTROPHILS # (AUTO) 3.5 X10'3 (1.8-7.7); NEUTROPHILS % (AUTO) 61.8 % (42-75); PLATELET COUNT 202 X10'3 (140-440); RED BLOOD COUNT 4.04 X10'6 (4.70-6.10); WHITE BLOOD COUNT 5.6 X10'3 (4.5-11.0)
[2018-11-16 19:47] LABS: ALANINE AMINOTRANSFERASE 21 U/L (12-78); ALBUMIN 3.2 G/DL (3.4-5.0); ALBUMIN/GLOBULIN RATIO 0.9 (1.1-1.5); ALKALINE PHOSPHATASE 104 IU/L (46-116); ANION GAP 3 (8-16); ASPARTATE AMINO TRANSFERASE 15 U/L (10-37); BILIRUBIN,TOTAL 0.6 MG/DL (0.1-1.0); BLOOD UREA NITROGEN 33 MG/DL (7-18); BUN/CREATININE RATIO 26.8 (5.4-32.0); CALCIUM 9.3 MG/DL (8.5-10.1); CHLORIDE 105 MMOL/L (99-107); CREATININE 1.23 MG/DL (0.60-1.10); GLUCOSE 164 MG/DL (70-104); SODIUM 144 MMOL/L (135-145); TOTAL CARBON DIOXIDE 36.4 MMOL/L (24-32); TOTAL PROTEIN 6.9 G/DL (6.4-8.2); eGFR 56 ML/MIN
[2018-11-16 20:21] LABS: PLATELET ESTIMATE NORMAL
[2018-11-16 20:22] LABS: ANISOCYTOSIS 2+; ELLIPTOCYTES 1+; POLYCHROMASIA FEW
== END 2018-11-16 20:18 | disposition home or self-care (01) ==
LOC: ER 18:56
DX: E86.0 Dehydration (principal); I13.0 Hypertensive heart and chronic kidney disease with heart failure and stage 1 through stage 4 chronic kidney disease, or unspecified chronic kidney disease; E11.22 Type 2 diabetes mellitus with diabetic chronic kidney disease; N18.9 Chronic kidney disease, unspecified; I50.9 Heart failure, unspecified; I25.2 Old myocardial infarction; E03.9 Hypothyroidism, unspecified; I48.91 Unspecified atrial fibrillation; Z87.442 Personal history of urinary calculi; Z79.82 Long term (current) use of aspirin; Z79.899 Other long term (current) drug therapy
CPT/HCPCS: 36415; 80053; 85025; 93005; 99284

== ENCOUNTER 2018-12-24 12:01 | Emergency (ER) | payer MEDICARE, OTHER ==
[~2018-12-24] VITALS: Ht 170.2 cm; Wt 80.0 kg
[2018-12-24 13:19] VITALS: BP 123/67
== END 2018-12-24 14:42 | disposition home or self-care (01) ==
LOC: ER 12:02
DX: N99.89 Other postprocedural complications and disorders of genitourinary system (principal); S30.21 Contusion of penis; I48.91 Unspecified atrial fibrillation; I11.0 Hypertensive heart disease with heart failure; I50.9 Heart failure, unspecified; I25.2 Old myocardial infarction; E11.9 Type 2 diabetes mellitus without complications; E03.9 Hypothyroidism, unspecified; Z87.442 Personal history of urinary calculi; Z79.82 Long term (current) use of aspirin; Z79.899 Other long term (current) drug therapy; X58.XXXD Exposure to other specified factors, subsequent encounter; Y83.8 Other surgical procedures as the cause of abnormal reaction of the patient, or of later complication, without mention of misadventure at the time of the procedure; Y92.89 Other specified places as the place of occurrence of the external cause
CPT/HCPCS: 99284

== ENCOUNTER 2019-08-07 09:40 | Emergency (ER) | payer MEDICARE ==
[~2019-08-07] VITALS: Ht 167.6 cm; Wt 73.6 kg
[2019-08-07 10:49] LABS: BASOPHILS % (AUTO) 0.6 % (0-1); EOSINOPHILS # (AUTO) 0.1 X10'3 (0-0.9); EOSINOPHILS % (AUTO) 2.5 % (0-6); HEMOGLOBIN 9.7 g/dl (14.0-17.9); LYMPHOCYTES # (AUTO) 0.8 X10'3 (1.1-4.8); LYMPHOCYTES % (AUTO) 14.4 % (21-51); MEAN CORPUSCULAR HEMOGLOBIN 29.7 PG (27.0-31.0); MEAN CORPUSCULAR HGB CONC 33.5 g/dL (33.0-36.5); MEAN CORPUSCULAR VOLUME 88.8 FL (78-98); MEAN PLATELET VOLUME 8.5 FL (7.4-10.4); MONOCYTES # (AUTO) 0.6 X10'3 (0-0.9); MONOCYTES % (AUTO) 10.4 % (2-12); NEUTROPHILS # (AUTO) 4.2 X10'3 (1.8-7.7); NEUTROPHILS % (AUTO) 72.1 % (42-75); PLATELET COUNT 196 X10'3 (140-440); RED BLOOD COUNT 3.27 X10'6 (4.70-6.10); RED CELL DISTRIBUTION WIDTH 14.4 % (11.5-14.5); WHITE BLOOD COUNT 5.8 X10'3 (4.5-11.0)
[2019-08-07 10:56] LABS: ALANINE AMINOTRANSFERASE 26 U/L (12-78); ALBUMIN 3.5 G/DL (3.4-5.0); ALKALINE PHOSPHATASE 97 IU/L (46-116); ANION GAP 7 (8-16); ASPARTATE AMINO TRANSFERASE 32 U/L (10-37); BILIRUBIN,TOTAL 1.2 MG/DL (0.1-1.0); BLOOD UREA NITROGEN 31 MG/DL (7-18); CALCIUM 8.9 MG/DL (8.5-10.1); CHLORIDE 103 MMOL/L (99-107); CREATININE 1.24 MG/DL (0.60-1.10); GLUCOSE 179 MG/DL (70-104); POTASSIUM 4.2 MMOL/L (3.5-5.1); SODIUM 142 MMOL/L (135-145); eGFR 55 ML/MIN
[2019-08-07] MEDS ORDERED: iohexol 350MG/ML 100ml bottle IV ONE (11:15)
[2019-08-07 14:37] VITALS: BP 130/72
[2019-08-07] MEDS ORDERED: TERA2CAP4 PO (19:59)
[2019-08-07] MEDS ORDERED: MULT-933 PO (19:59)
[2019-08-07] MEDS ORDERED: FURO40TA4 PO (19:59)
[2019-08-07] MEDS ORDERED: LEVO150T8 PO (19:59)
[2019-08-07] MEDS ORDERED: ASCO500C17 PO (19:59)
[2019-08-07] MEDS ORDERED: METF500T PO (19:59)
[2019-08-07] MEDS ORDERED: APIX5TAB3 PO (20:00)
== END 2019-08-07 15:06 | disposition home or self-care (01) ==
LOC: ER 09:41
DX: S40.022A Contusion of left upper arm, initial encounter (principal); I48.91 Unspecified atrial fibrillation; I11.0 Hypertensive heart disease with heart failure; I50.9 Heart failure, unspecified; I25.2 Old myocardial infarction; E11.9 Type 2 diabetes mellitus without complications; E03.9 Hypothyroidism, unspecified; Z98.890 Other specified postprocedural states; Z79.84 Long term (current) use of oral hypoglycemic drugs; Z79.899 Other long term (current) drug therapy; X58.XXXA Exposure to other specified factors, initial encounter; Y93.89 Activity, other specified; Y92.89 Other specified places as the place of occurrence of the external cause; Y99.8 Other external cause status
CPT/HCPCS: 36415; 73206; 80053; 85025; 85610; 99285; Q9967

== ENCOUNTER 2019-08-07 17:19 | Inpatient (IN) | payer MEDICARE, OTHER ==
[~2019-08-07] VITALS: Ht 165.1 cm; Wt 73.0 kg
--- NOTE | 2019-08-07 18:40 | NUR ---
DIRECTOR EDUCATIONAL RADIO AT BEDSIDE
[2019-08-07] MEDS ORDERED: LEVO150T8 PO (19:59)
[2019-08-07] MEDS ORDERED: ASCO500C17 PO (19:59)
[2019-08-07] MEDS ORDERED: TERA2CAP4 PO (19:59)
[2019-08-07] MEDS ORDERED: FURO40TA4 PO (19:59)
[2019-08-07] MEDS ORDERED: MULT-933 PO (19:59)
[2019-08-07] MEDS ORDERED: METF500T PO (19:59)
[2019-08-07] MEDS ORDERED: APIX5TAB3 PO (20:00)
[2019-08-07] MEDS ORDERED: mag hydrox/Alum hydrox/simeth 30ml oral suspension PO PRN (20:10)
[2019-08-07] MEDS ORDERED: HYDROcodone/acetaminophen 5mg/325mg tablet PO PRN (20:10)
[2019-08-07] MEDS ORDERED: magnesium Cl slow-release 64mg tablet PO PRN (20:10)
[2019-08-07] MEDS ORDERED: ondansetron/PF 4mg/2ml inj IV PRN (20:10)
[2019-08-07] MEDS ORDERED: potassium CL 10mEq/100ml bag 100 ML IV PRN ×2 (20:10)
[2019-08-07] MEDS ORDERED: magnesium 4gm in 100ml NS 100 ML IV PRN (20:10)
[2019-08-07] MEDS ORDERED: morphine 2 MG/ML inj. syringe IV PRN ×2 (20:10)
[2019-08-07] MEDS ORDERED: potassium Cl 20 mEq SR tablet PO PRN ×2 (20:10)
[2019-08-07] MEDS ORDERED: magnesium hydroxide 30ml (MOM) UD suspension PO PRN (20:10)
[2019-08-07] MEDS ORDERED: acetaminophen 325mg tablet PO PRN ×2 (20:10)
[2019-08-07] MEDS ORDERED: magnesium 2GM in 50ml NS 50 ML IV PRN (20:10)
[2019-08-07] MEDS: normal saline 1000ml 1,000 ML IV SCH (21:45)
[2019-08-07 22:30] VITALS: BP 139/58
[2019-08-07] MEDS ORDERED: dextrose ORAL solution 15 GM/59 ML bottle PO PRN ×2 (22:30)
[2019-08-07] MEDS ORDERED: MESSAGE TO PHARMACY PO ONE (22:30)
[2019-08-07] MEDS ORDERED: insulin Lispro (HumaLOG) vial - multi-dose SQ SCH (22:30)
[2019-08-07] MEDS ORDERED: glucagon, human recombinant 1mg kit SUBCUT PRN (22:30)
[2019-08-07] MEDS ORDERED: dextrose 50%-water 50ml dispensing syringe IV PRN ×2 (22:30)
--- NOTE | 2019-08-07 23:27 | NUR ---
Pt arrived to the floor at 2230 via gurney from the ER. Admitted for L shoulder subluxation. Arm appears swollen and bruside from shoulder to hand. Radial pulse is palpable but weak. Cap refill <3 sec. VSS. RN skin check complete. Darting complete. MRSA swab collected. Placed on tele. Current rhythm is rate controlled A-fib with occasional PVCs. Oriented to room, unit policies, medication times, vital signs times, and meal times.
[2019-08-08] VITALS (12 sets, daily range): BP systolic 127–147; BP diastolic 54–79
[2019-08-08 05:39] LABS: BASOPHILS % (AUTO) 0.6 % (0-1); EOSINOPHILS # (AUTO) 0.4 X10'3 (0-0.9); EOSINOPHILS % (AUTO) 5.5 % (0-6); HEMATOCRIT 27.5 % (42.0-52.0); HEMOGLOBIN 9.4 g/dl (14.0-17.9); LYMPHOCYTES # (AUTO) 1.5 X10'3 (1.1-4.8); LYMPHOCYTES % (AUTO) 22.9 % (21-51); MEAN CORPUSCULAR HGB CONC 34.2 g/dL (33.0-36.5); MEAN CORPUSCULAR VOLUME 87.8 FL (78-98); MEAN PLATELET VOLUME 8.2 FL (7.4-10.4); MONOCYTES # (AUTO) 0.7 X10'3 (0-0.9); MONOCYTES % (AUTO) 11.5 % (2-12); NEUTROPHILS # (AUTO) 3.9 X10'3 (1.8-7.7); NEUTROPHILS % (AUTO) 59.5 % (42-75); PLATELET COUNT 209 X10'3 (140-440); RED BLOOD COUNT 3.13 X10'6 (4.70-6.10); RED CELL DISTRIBUTION WIDTH 14.6 % (11.5-14.5); WHITE BLOOD COUNT 6.5 X10'3 (4.5-11.0)
[2019-08-08 05:52] LABS: ALBUMIN 3.3 G/DL (3.4-5.0); ANION GAP 4 (8-16); BLOOD UREA NITROGEN 31 MG/DL (7-18); BUN/CREATININE RATIO 25.8 (5.4-32.0); CALCIUM 8.6 MG/DL (8.5-10.1); CHLORIDE 106 MMOL/L (99-107); GLUCOSE 155 MG/DL (70-104); MAGNESIUM 1.9 MG/DL (1.5-2.4); POTASSIUM 3.9 MMOL/L (3.5-5.1); SODIUM 144 MMOL/L (135-145); TOTAL CARBON DIOXIDE 33.6 MMOL/L (24-32); eGFR 57 ML/MIN
[2019-08-08] MEDS: normal saline 1000ml 1,000 ML IV SCH ×2 (06:10→17:00)
--- NOTE | 2019-08-08 06:31 | NUR ---
Problems reprioritized. Patient report given, questions answered & plan of care reviewed with Elise RYAN.
--- NOTE | 2019-08-08 06:45 | NUR ---
Patient in room PCU 3023. I have received report from Juju RYAN and had the opportunity to ask questions and assume patient care.
[2019-08-08] MEDS: ascorbic acid 500mg tablet PO SCH (07:13)
[2019-08-08] MEDS: furosemide 40mg tablet PO SCH ×2 (07:14→20:45)
[2019-08-08] MEDS: multivitamins, therapeutics tablet PO SCH (07:14)
[2019-08-08] MEDS: levoTHYROXINE 75mcg tablet PO SCH (07:14)
[2019-08-08] MEDS: K and/or MAG REPLACEMENT MC SCH ×2 (07:15→20:00)
[2019-08-08] MEDS ORDERED: BUPIVAcaine/PF 2.5mg/ml (0.25%) 10ml vial ONE (12:26)
[2019-08-08] MEDS ORDERED: heparin 10,000 units/1 ML INJ ONE (12:26)
--- NOTE | 2019-08-08 12:40 | NUR ---
PT DOWN TO OR. FAMILY AT SIDE. REPORT CALLED TO CALEB RYAN IN RECOVERY. ALL QUESTIONS ANSWERED.
[2019-08-08] MEDS ORDERED: fentaNYL/PF 50MCG/1 ML 2ML syringe ONE (13:56)
[2019-08-08] MEDS ORDERED: propofol inj 20 ML IV ONE (13:59)
[2019-08-08] MEDS ORDERED: ePHEDrine 50MG/ML INJ. ONE (14:47)
[2019-08-08] MEDS ORDERED: ceFAZolin 1000mg inj ONE ×2 (14:48)
--- NOTE | 2019-08-08 15:03 | NUR ---
Received from OR via SURGICAL BED , accompanied by Anesthesiologist CHAS and report given by Anesthesiolgist. PATIENT WITH 20G PIV IN RIGHT HAND RUNNING LR AT 100. DENIES PAIN. LEFT UE WITH DRESSING FROM HAND TO BICEP AREA. + CAP REFILL AND SENSATION/MOVEMENT. 10L MASK ON WITH 100% SATURATIONS. SCDS DONNED IN RR. Addendum: 08/08/19 at 1518 by Nathanael Chauhan RN, RN Amended: Links added.
--- NOTE | 2019-08-08 15:33 | NUR ---
ALL CRITERIA FOR TRANSFER TO THE FLOOR HAS BEEN ACHIEVED. IV INTACT. NS AT 50CC HR. DENIES PAIN. + CAP REFILL, SENSATION, MOVEMENT TO LEFT UE WITH NO DRAINAGE PRESENT. VSS IN PCU. BED LOW, CALL LIGHT PRESENT. RN AWARE PATIENT HAS ARRIVED. Addendum: 08/08/19 at 1542 by Nathanael Chauhan RN, RN Amended: Links added.
--- NOTE | 2019-08-08 16:00 | NUR ---
Patient returns from OR @ 1600, no new orders, pt tucked in to bed, will continue to monitor.
--- NOTE | 2019-08-08 16:26 | NUR ---
DM consult, Hgb A1c is 7.9%. Patient needs written DM education handout with verbal review and referral to outpatient DM education class on Monday. Patient was not in bed, no bed in patient room when RD attempted visit. Will attempt again prior to discharge. Will continue to follow. Addendum: 08/08/19 at [address] Amended: Links added.
--- NOTE | 2019-08-08 18:00 | NUR ---
Patient in room PCU 3023. I have received report from Elise RYAN and had the opportunity to ask questions and assume patient care.
--- NOTE | 2019-08-08 18:47 | NUR ---
Problems reprioritized. Patient report given, questions answered & plan of care reviewed with aidan perez.
[2019-08-08] MEDS ORDERED: insulin glargine (Lantus) pen - multi-dose SQ SCH (21:00)
[2019-08-08] MEDS ORDERED: Terazosin 1mg capsule PO SCH (21:00)
[2019-08-09 02:00] VITALS: BP 129/64
[2019-08-09] MEDS: normal saline 1000ml 1,000 ML IV SCH (02:10)
[2019-08-09 06:00] VITALS: BP 135/69
[2019-08-09 06:14] LABS: BASOPHILS % (AUTO) 0.6 % (0-1); EOSINOPHILS # (AUTO) 0.3 X10'3 (0-0.9); EOSINOPHILS % (AUTO) 4.7 % (0-6); HEMOGLOBIN 8.8 g/dl (14.0-17.9); LYMPHOCYTES % (AUTO) 18.8 % (21-51); MEAN CORPUSCULAR HGB CONC 33.8 g/dL (33.0-36.5); MEAN CORPUSCULAR VOLUME 88.8 FL (78-98); MEAN PLATELET VOLUME 8.1 FL (7.4-10.4); MONOCYTES # (AUTO) 0.7 X10'3 (0-0.9); NEUTROPHILS # (AUTO) 3.5 X10'3 (1.8-7.7); NEUTROPHILS % (AUTO) 63.9 % (42-75); PLATELET COUNT 194 X10'3 (140-440); RED BLOOD COUNT 2.93 X10'6 (4.70-6.10); RED CELL DISTRIBUTION WIDTH 14.4 % (11.5-14.5); WHITE BLOOD COUNT 5.5 X10'3 (4.5-11.0)
--- NOTE | 2019-08-09 06:19 | NUR ---
Patient in room PCU 3023. I have received report from Perla RYAN and had the opportunity to ask questions and assume patient care.
--- NOTE | 2019-08-09 06:36 | NUR ---
Problems reprioritized. Patient report given, questions answered & plan of care reviewed with Elise RYAN.
--- NOTE | 2019-08-09 06:37 | NUR ---
END NOC NOTE Patient slept well tonight. Left arm reinforced with more gauze and ABD pad. Patient met Hyperglycemic protocol at 2100 but refused insulin stating "I just ate, I'll be fine tonight." Will continue to monitor and pass on information to AM shift nurse.
[2019-08-09 06:38] LABS: ALBUMIN 2.9 G/DL (3.4-5.0); ANION GAP 3 (8-16); BLOOD UREA NITROGEN 23 MG/DL (7-18); BUN/CREATININE RATIO 21.7 (5.4-32.0); CALCIUM 7.8 MG/DL (8.5-10.1); CHLORIDE 108 MMOL/L (99-107); CREATININE 1.06 MG/DL (0.60-1.10); GLUCOSE 151 MG/DL (70-104); MAGNESIUM 1.8 MG/DL (1.5-2.4); POTASSIUM 3.6 MMOL/L (3.5-5.1); SODIUM 144 MMOL/L (135-145); TOTAL CARBON DIOXIDE 32.6 MMOL/L (24-32); eGFR 66 ML/MIN
[2019-08-09] MEDS: ascorbic acid 500mg tablet PO SCH (07:34)
[2019-08-09] MEDS: K and/or MAG REPLACEMENT MC SCH (07:34)
[2019-08-09] MEDS: levoTHYROXINE 75mcg tablet PO SCH (07:34)
[2019-08-09] MEDS: multivitamins, therapeutics tablet PO SCH (07:34)
[2019-08-09] MEDS: furosemide 40mg tablet PO SCH (07:34)
[2019-08-09 11:00] VITALS: BP 132/73
--- NOTE | 2019-08-09 12:07 | NUR ---
Pt is stable for discharge per md orders, discharge instructions reviewed with pt and all questions answered, no new prescriptions, tele monitor 45 returned, PIV dc'ed and clean dry dressing in place, wound supplies for weeping left elbow given and dressing changed prior to discharge, pt is discharged at 1150 to home, wheeled down to lobby with hospital staff and daughter will give him a ride home, all belongings with pt at time of discharge.
--- NOTE | 2019-08-09 13:37 | NUR ---
F/u: Pt discharged prior to RD being available for bedside visit. DM education with referral to outpatient DM class and RD contact information mailed to patient's home address found in EMR. Will remain available. Addendum: 08/09/19 at [address] Amended: Links added.
== END 2019-08-09 12:15 | disposition home health service (06) | DRG 253 ==
LOC: ER 17:20 → ED HOLD 20:21 → EDBEDREQ 21:58 → PCU 3S 22:27
PROVIDERS: ADMIT Hospitalist; ATTEND Family Medicine
PROC: 03JY0ZZ Inspection of Upper Artery, Open Approach (ICD-10-PCS; principal; 2019-08-09)
DX: I74.2 Embolism and thrombosis of arteries of the upper extremities (principal); I48.20 Chronic atrial fibrillation, unspecified; S55.00 Unspecified injury of ulnar artery at forearm level; I50.9 Heart failure, unspecified; D64.9 Anemia, unspecified; E03.9 Hypothyroidism, unspecified; S43.002A Unspecified subluxation of left shoulder joint, initial encounter; E11.9 Type 2 diabetes mellitus without complications; I11.0 Hypertensive heart disease with heart failure; I25.10 Atherosclerotic heart disease of native coronary artery without angina pectoris; S46.912A Strain of unspecified muscle, fascia and tendon at shoulder and upper arm level, left arm, initial encounter; N40.0 Benign prostatic hyperplasia without lower urinary tract symptoms; S43.005A Unspecified dislocation of left shoulder joint, initial encounter; S46.219A Strain of muscle, fascia and tendon of other parts of biceps, unspecified arm, initial encounter; X50.0XXA Overexertion from strenuous movement or load, initial encounter; Z87.442 Personal history of urinary calculi; I25.2 Old myocardial infarction; Z97.4 Presence of external hearing-aid; Z79.899 Other long term (current) drug therapy; Z79.82 Long term (current) use of aspirin; Y93.89 Activity, other specified; Y92.89 Other specified places as the place of occurrence of the external cause; Y99.8 Other external cause status
CPT/HCPCS: 36415; 71046; 80048; 82948; 83036; 83735; 83880; 85025; 85610; 86885; 86900; 86901; 87081; 93306; 93931; 99285; A4215; A4618; A6222; A6446; A6449; A7000; C1757; G0378; J0690; J1644; J1815; J2704; J3010; J3490; J7030; J7040; J7120

== ENCOUNTER 2020-09-21 07:18 | Day surgery (SDC) | payer MEDICARE, OTHER ==
[~2020-09-21 07:18] MED LIST changes: +ACET-2615 PO; +ASCO500T28 PO; -ASPI81TA52 PO; +BUME1TAB8 PO; +DOCU250C96 PO; -FURO40TA4 PO; +GLIM1TAB6 PO; -LEVO150T PO; +LEVO75TA7 PO; +LIDO700A32 TOP; +LISI10TA27 PO; -LISI40TA4 PO; -MU V PO; +MULT-1085 PO; -MUPI22OI30 TP
[2020-09-21 07:52] VITALS: BP 115/59
[2020-09-21] MEDS ORDERED: EMPA25TA PO (07:58)
[2020-09-21] MEDS ORDERED: BETA1TAB20 PO (07:58)
[2020-09-21 09:15] VITALS: BP 121/65
== END 2020-09-21 09:40 | disposition home or self-care (01) ==
LOC: SSTAY O 07:18
PROVIDERS: ATTEND Radiology Diagnostic Radiology
DX: R18.8 Other ascites (principal); R14.0 Abdominal distension (gaseous); K74.60 Unspecified cirrhosis of liver; I11.0 Hypertensive heart disease with heart failure; I50.9 Heart failure, unspecified; I48.91 Unspecified atrial fibrillation; I25.10 Atherosclerotic heart disease of native coronary artery without angina pectoris; E03.9 Hypothyroidism, unspecified; I42.9 Cardiomyopathy, unspecified; I27.20 Pulmonary hypertension, unspecified; Z87.19 Personal history of other diseases of the digestive system; Z85.820 Personal history of malignant melanoma of skin; Z79.899 Other long term (current) drug therapy
CPT/HCPCS: 76705

== ENCOUNTER 2020-09-28 09:43 | Emergency (ER) | payer OTHER ==
[~2020-09-28] VITALS: Ht 170.2 cm; Wt 76.4 kg
[~2020-09-28 09:43] MED LIST changes: +BETA1TAB20 PO; -DOCU250C96 PO; +EMPA25TA PO; -GLIM1TAB6 PO
[2020-09-28 10:15] LABS: CLARITY,URINE CLOUDY (Clear); COLOR,URINE YELLOW (Yellow); GLUCOSE, URINE NEGATIVE (Neg); KETONES,URINE NEGATIVE (Neg); LEUKOCYTE ESTERASE ,URINE LARGE (Neg); NITRITES, URINE NEGATIVE (Neg); OCCULT BLOOD,URINE SMALL (Neg); PROTEIN,URINE 30 mg/dl (Neg); UROBILINOGEN,URINE 0.2 E.U/dL (0.2-1.0)
[2020-09-28 10:20] LABS: UA COLLECTION TYPE FOLEY CATH
[2020-09-28 10:21] LABS: SQUAMOUS EPITHELIAL CELL,UR FEW /LPF (FEW)
[2020-09-28 10:22] LABS: BACTERIA,URINE 2+ /HPF (Neg)
[2020-09-28 10:23] LABS: WBC,URINE TNTC /HPF (0-4); YEAST MANY /HPF (NEGATIVE)
[2020-09-28 10:24] LABS: WBC CLUMPS,URINE MANY /HPF (NEGATIVE)
[2020-09-28 11:11] LABS: BASOPHILS % (AUTO) 0.5 % (0-1); EOSINOPHILS # (AUTO) 0.2 X10'3 (0-0.9); HEMATOCRIT 25.2 % (42.0-52.0); HEMOGLOBIN 7.9 g/dl (14.0-17.9); LYMPHOCYTES # (AUTO) 0.5 X10'3 (1.1-4.8); LYMPHOCYTES % (AUTO) 6.5 % (21-51); MEAN CORPUSCULAR HEMOGLOBIN 24.4 PG (27.0-31.0); MEAN CORPUSCULAR HGB CONC 31.5 g/dL (33.0-36.5); MEAN CORPUSCULAR VOLUME 77.5 FL (78-98); MEAN PLATELET VOLUME 7.7 FL (7.4-10.4); MONOCYTES # (AUTO) 0.8 X10'3 (0-0.9); MONOCYTES % (AUTO) 10.7 % (2-12); NEUTROPHILS # (AUTO) 6.2 X10'3 (1.8-7.7); NEUTROPHILS % (AUTO) 80.3 % (42-75); PLATELET COUNT 300 X10'3 (140-440); RED BLOOD COUNT 3.25 X10'6 (4.70-6.10); RED CELL DISTRIBUTION WIDTH 18.6 % (11.5-14.5); WHITE BLOOD COUNT 7.8 X10'3 (4.5-11.0)
[2020-09-28 11:26] LABS: ALANINE AMINOTRANSFERASE 46 U/L (12-78); ALBUMIN 2.9 G/DL (3.4-5.0); ALBUMIN/GLOBULIN RATIO 0.6 (1.1-1.5); ALKALINE PHOSPHATASE 136 IU/L (46-116); ANION GAP 10 (8-16); ASPARTATE AMINO TRANSFERASE 32 U/L (10-37); BILIRUBIN,TOTAL 0.5 MG/DL (0.1-1.0); BLOOD UREA NITROGEN 96 MG/DL (7-18); BUN/CREATININE RATIO 42.7 (5.4-32.0); CALCIUM 8.4 MG/DL (8.5-10.1); CHLORIDE 105 MMOL/L (99-107); CREATININE 2.25 MG/DL (0.60-1.10); GLUCOSE 173 MG/DL (70-104); POTASSIUM 4.6 MMOL/L (3.5-5.1); SODIUM 142 MMOL/L (135-145); TOTAL CARBON DIOXIDE 26.7 MMOL/L (24-32); TOTAL PROTEIN 7.4 G/DL (6.4-8.2); eGFR 28 ML/MIN
[2020-09-28] MEDS ORDERED: CefTRIAXone/D5W-Rocephin 1gm 50 ML IV ONE (11:30)
[2020-09-28 12:03] LABS: PLATELET ESTIMATE NORMAL
[2020-09-28 12:04] LABS: ANISOCYTOSIS 2+; ELLIPTOCYTES 2+; MICROCYTOSIS 1+; SCHISTOCYTES 1+
[2020-09-28 12:05] LABS: TEAR DROP CELLS FEW
[2020-09-28] MEDS ORDERED: CIPR-259 PO (12:57)
[2020-09-28 14:14] VITALS: BP 134/62
== END 2020-09-28 14:20 | disposition home or self-care (01) ==
LOC: ER 09:44
DX: N39.0 Urinary tract infection, site not specified (principal); N28.9 Disorder of kidney and ureter, unspecified; R07.89 Other chest pain; I48.91 Unspecified atrial fibrillation; I11.0 Hypertensive heart disease with heart failure; I50.9 Heart failure, unspecified; I25.2 Old myocardial infarction; E11.9 Type 2 diabetes mellitus without complications; E03.9 Hypothyroidism, unspecified; Z87.442 Personal history of urinary calculi; Z98.890 Other specified postprocedural states; Z79.899 Other long term (current) drug therapy
CPT/HCPCS: 36415; 80053; 81001; 83605; 84484; 85008; 85025; 87040; 87077; 87088; 87186; 96365; 99284; J0696; 96374